=== PATIENT | male | born 1995 | race Two or more races ===

== ENCOUNTER 2019-11-12 19:01 | Emergency (ER) | payer SELFPAY ==
--- NOTE | 2019-11-12 19:04 | ED Physician Documentation ---
History of Present Illness - Stated complaint Stated Complaint: LT WRIST INJURY - Chief complaint Chief Complaint: Trauma Ext - History obtained from History obtained from: Patient (The patient is a 23-year-old male who presents with a chief complaint of left wrist pain the patient reports he is left-hand dominant. Patient reports that he was moving heavy furniture yesterday and today and now his wrist is sore he denies any trauma he denies any weakness or sensory loss or any other complaints.He denies any history of previous injuries to his left upper extremity.) Review of Systems Constitutional: reports: Reviewed and negative Eyes: reports: Reviewed and negative Ears: reports: Reviewed and negative Nose: reports: Reviewed and negative Throat: reports: Reviewed and negative Cardiac: reports: Reviewed and negative Respiratory: reports: Reviewed and negative GI: reports: Reviewed and negative : reports: Reviewed and negative Skin: reports: Reviewed and negative Musculoskeletal: reports: Joint pain (Left wrist pain) Neurologic: reports: Reviewed and negative Psychiatric: reports: Reviewed and negative Endocrine: reports: Reviewed and negative Immunocompromised: reports: Reviewed and negative PD PAST MEDICAL HISTORY - Allergies Allergies/Adverse Reactions: Allergies Allergy/AdvReac Type Severity Reaction Status Date / Time No Known Drug Allergies Allergy Verified 11/12/19 19:07 PD ED PE NORMAL - Vitals Vital signs reviewed: Yes - General General: Alert and oriented X 3, No acute distress - HEENT HEENT: PERRL - Neck Neck: Supple, no meningeal sign - Cardiac Cardiac: RRR, No murmur - Respiratory Respiratory: Clear bilaterally - Abdomen Abdomen: Normal bowel sounds, Soft, Non tender, Non distended - Derm Derm: Warm and dry - Extremities Extremities: No deformity, No tenderness to palpate, Normal ROM s pain, No edema, Other (Patient's complaining to pain to the left wrist there is no pain there is no swelling there is no deformity there is no instability his strength is 5 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 he has palpable radial pulses that are 2+ and symmetric his radian, median, ulnar motor and sensory exam are intact there is no pain over the proximal radial head there is no swelling his compartments are soft he is neurovascular intact.) - Neuro Neuro: Alert and oriented X 3 - Psych Psych: Normal mood, Normal affect Results - Vitals Vitals: Vital Signs - 24 hr 11/12/19 19:04 Temperature 36.4 C L Heart Rate 79 Respiratory 14 Rate Blood Pressure 158/78 H O2 Saturation 99 Oxygen O2 Source Room air Departure - Departure Disposition: 01 Home, Self Care Clinical Impression: Wrist pain, left Condition: Good Instructions: ED Sprain Wrist Follow-Up: YOUR,DOCTOR [Other] Comments: USE AN OVER THE COUNTER WRIST SPLINT NEEDED AND TAKE IBUPROFEN NEEDED WELL ICE SEVERAL TIMES DAILY.
[2019-11-12] MEDS ORDERED: IBUPROFEN 800 MG TABLET PO STA (19:12)
--- NOTE | 2019-11-12 20:00 | XRAY Report ---
Reason: left wrist pain Procedure Date: 11/12/2019 Accession Number: [id number] / [id number] Procedure: XR - Wrist 3 View LT CPT Code: Final Report FULL RESULT: EXAM: LEFT WRIST RADIOGRAPHY EXAM DATE: 11/12/2019 07:35 PM. CLINICAL HISTORY: Left wrist pain, fall today. COMPARISON: None. TECHNIQUE: 3 views. FINDINGS: Bones: No acute fracture. Joints: Normal. No dislocation. Soft Tissues: No focal soft tissue swelling. IMPRESSION: No acute osseus abnormality. RADIA
[2019-11-12 20:25] VITALS: BP 130/70
== END 2019-11-12 20:25 | disposition home or self-care (01) ==
LOC: ED 19:01
DX: M25.532 Pain in left wrist (principal)
CPT/HCPCS: 73110; 99283; 99284; A9270

== ENCOUNTER 2020-01-20 16:18 | Outpatient (CLI) | payer SELFPAY | END 2020-01-20 16:19 | disposition home or self-care (01) | LOC: COV 16:18 | PROVIDERS: ATTEND Family Medicine | DX: R50.9 Fever, unspecified (principal); Z20.828 Contact with and (suspected) exposure to other viral communicable diseases | CPT/HCPCS: 81599 ==

== ENCOUNTER 2020-04-09 20:58 | Emergency (ER) | payer OTHER ==
[2020-04-09] MEDS ORDERED: TETANUS/DIPHTHERIA/PERTUSSIS 0.5 ML SYRINGE IM ONE (21:32)
[2020-04-09] MEDS ORDERED: NEOMYCIN/BACITRA/POLYMYX OINT PACKET TOP STA (21:33)
--- NOTE | 2020-04-09 21:36 | ED Physician Documentation ---
PD HPI UPPER EXT INJURY - Stated complaint Stated Complaint: RT FINGERS INJ - Chief complaint Chief Complaint: Laceration - History obtained from History obtained from: Patient - History of Present Illness Location: Right, Finger (ring middle and little) Type of injury: Other (strangulation) Where injury occurred: [place] Timing - onset: How many days ago (2) Timing - duration: Days (2) Timing - details: Abrupt onset, Still present Improved by: Rest, Dressing Worsened by: Moving, Palpating Associated symptoms: No: Weakness, Numbness, Tingling, Swelling Contributing factors: No: Anticoagulated Similar symptoms before: Diagnosis (skin avulsion) Recently seen: Not recently seen - Additonal information Additional information: Previously well 24-year-old male was out walking his dog when the dog ran after something pulled on the leash and the leash strangulated 3 of his fingers. He is torn the skin on 2 of them and burned the third this happened 2 days ago. He has had a dressing over it and he has come in now with concerns about his wounds. Review of Systems Constitutional: denies: Fever Eyes: denies: Decreased vision Ears: denies: Ear pain Nose: denies: Congestion Throat: denies: Sore throat Respiratory: denies: Dyspnea, Cough GI: denies: Vomiting : denies: Dysuria PD PAST MEDICAL HISTORY - Allergies Allergies/Adverse Reactions: Allergies Allergy/AdvReac Type Severity Reaction Status Date / Time No Known Drug Allergies Allergy Verified 04/09/20 21:01 PD ED PE NORMAL - Vitals Vital signs reviewed: Yes (Hypertensive mild) - General General: Alert and oriented X 3, No acute distress, Well developed/nourished - HEENT HEENT: Atraumatic, PERRL, EOMI - Respiratory Respiratory: No respiratory distress - Derm Derm: Normal color, Warm and dry, No rash - Extremities Extremities: No deformity, No edema, Other (On the dorsal ulnar surface of the ring finger there is distraction of the epidermis with exposure of the dermis but does not penetrate the dermis. There is ruggae of the skin consistent with a wet dressing. The middle finger is similarly involved over the volar ulnar surface. ) - Neuro Neuro: Alert and oriented X 3, human resources admin 2-12 intact, No motor deficit, No sensory deficit, Normal speech Eye Opening: Spontaneous Motor: Obeys Commands Verbal: Oriented GCS Score: 15 - Psych Psych: Normal mood, Normal affect Results - Vitals Vitals: Vital Signs - 24 hr 04/09/20 21:01 Temperature 36.5 C Heart Rate 82 Respiratory 14 Rate Blood Pressure 136/77 H O2 Saturation 100 Oxygen O2 Source Room air PD MEDICAL DECISION MAKING - ED course Complexity details: reviewed results, re-evaluated patient, considered differential, d/w patient ED course: 24 y/o male with a strangulation of 3 fingers with superficial epidermal avulsion without evidence of infection is treated conservatively with wound dressing and he is given instruction on keeping the wound dry under the bandages. He is given a tetanus booster. Departure - Departure Disposition: 01 Home, Self Care Clinical Impression: Avulsion of skin of finger without complication Qualifiers: Encounter type: initial encounter Qualified Code(s): S61.209A - Unspecified open wound of unspecified finger without damage to nail, initial encounter Condition: Stable Instructions: ED Wound Care Follow-Up: [facility] [Provider Group]
[2020-04-09 21:54] VITALS: BP 126/75
== END 2020-04-09 21:54 | disposition home or self-care (01) ==
LOC: ED 20:58
DX: S61.204A Unspecified open wound of right ring finger without damage to nail, initial encounter (principal); S60.444A External constriction of right ring finger, initial encounter; S61.202A Unspecified open wound of right middle finger without damage to nail, initial encounter; S60.442A External constriction of right middle finger, initial encounter; S61.206A Unspecified open wound of right little finger without damage to nail, initial encounter; S60.446A External constriction of right little finger, initial encounter; W49.09XA Other specified item causing external constriction, initial encounter; Y93.K1 Activity, walking an animal; Y92.830 Public park as the place of occurrence of the external cause; Z23 Encounter for immunization
CPT/HCPCS: 99282; 99283

== ENCOUNTER 2021-03-09 18:36 | Emergency (ER) | payer MEDICAID, OTHER ==
[2021-03-09 19:02] VITALS: BP 133/73
--- NOTE | 2021-03-09 20:04 | XRAY Report ---
PROCEDURE: Ankle 3 View RT INDICATIONS: twisted playing basketball TECHNIQUE: 3 views of the ankle were acquired. COMPARISON: None FINDINGS: Bones: No fractures or dislocations. Ankle mortise is normally aligned. No suspicious bony lesions . Soft tissues: No tibiotalar joint effusion. Achilles tendon appears normal. IMPRESSION: No evidence acute bony abnormality of the right ankle. Reviewed by: Luis Pearce MD on 03/09/2021 8:02 PM PDT Approved by: Luis Pearce MD on 03/09/2021 8:02 PM PDT Station ID: [id number]
--- NOTE | 2021-03-09 20:07 | ED Physician Documentation ---
PD HPI LOWER EXT INJURY - Stated complaint Stated Complaint: RT ANKLE INJ - Chief complaint Chief Complaint: Trauma Ext - History obtained from History obtained from: Patient - History of Present Illness PD HPI LOW EXT INJURY LOCATION: Right, Ankle Type of injury: Fall, Twist Timing - onset: How many hours ago (1) Timing - duration: Hours (1) Pain level max: 7 Pain level now: 4 Improved by: Rest, Ice Worsened by: Moving, Palpating Associated symptoms: No: Weakness, Numbness, Swelling Contributing factors: No: Anticoagulated, Prior ortho surgery - Additional information Additional information: 25-year-old male was playing basketball today when he came down on another player's foot injuring the right ankle. He states that it twisted. Review of Systems Constitutional: denies: Fever Neurologic: denies: Head injury PD PAST MEDICAL HISTORY - Past Medical History Past Medical History: Yes Cardiovascular: None Respiratory: Asthma Neuro: None Endocrine/Autoimmune: None GI: None : None HEENT: None Psych: Depression, Bipolar disorder, ADD/ADHD Musculoskeletal: None Derm: None Other Past Medical History: Low Testoterone - Past Surgical History Past Surgical History: Yes Ortho: Other - Present Medications Home Medications: Ambulatory Orders Medication Instructions Recorded Confirmed Methylphenidate HCl [Ritalin] 15 mg PO BID 03/09/21 03/09/21 Testosterone Cypionate 0.5 ml SQ 03/09/21 [Depo-Testosterone] - Allergies Allergies/Adverse Reactions: Allergies Allergy/AdvReac Type Severity Reaction Status Date / Time No Known Drug Allergies Allergy Verified 03/09/21 19:02 - Social History Does the pt smoke?: No Smoking Status: Never smoker Does the pt drink ETOH?: No Does the pt have substance abuse?: No - Immunizations Immunizations are current?: Yes - POLST Patient has POLST: No PD ED PE NORMAL - Vitals Vital signs reviewed: Yes - General General: Alert and oriented X 3, No acute distress - HEENT HEENT: Moist mucous membranes - Neck Neck: Supple, no meningeal sign - Derm Derm: Warm and dry - Extremities Extremities: Other (Right ankle - Mild tenderness to palpation over the lateral malleolus of the right ankle. No tenderness over the foot, especially the base of the fifth metatarsal. No swelling. Neurovascular intact. Otherwise normal examination of the right foot, ankle, lower leg and knee.) - Neuro Neuro: Alert and oriented X 3 Results - Vitals Vitals: Vital Signs - 24 hr 03/09/21 18:59 Temperature 36.8 C Heart Rate 84 Respiratory 16 Rate Blood Pressure 133/73 H O2 Saturation 98 Oxygen O2 Source Room air - Rads (name of study) right Ankle x-ray Radiology: Prelim report reviewed, EMP read contemporaneously, See rad report PD MEDICAL DECISION MAKING - ED course Complexity details: reviewed results, re-evaluated patient, considered differential, d/w patient, d/w family ED course: Patient with a right ankle sprain. Placed in a gel splint for comfort. Given crutches. Declines pain medications here or for home. Patient counseled regarding signs and symptoms for which I believe and urgent re-evaluation would be necessary. Patient with good understanding of and agreement to plan and is comfortable going home at this time This document was made in part using voice recognition software. While efforts are made to proofread this document, sound alike and grammatical errors may occur. Departure - Departure Disposition: 01 Home, Self Care Clinical Impression: Right ankle sprain Qualifiers: Encounter type: initial encounter Involved ligament of ankle: unspecified ligament Qualified Code(s): S93.401A - Sprain of unspecified ligament of right ankle, initial encounter Condition: Good Instructions: ED Sprain Ankle Follow-Up: your,doctor in 1 week [Other] Comments: Your x-ray does not show any acute abnormalities today. You may bear weight as tolerated. Use the crutches to help stay off of the ankle. You can use Motrin or Tylenol for pain. Return if you worsen Discharge Date/Time: 03/09/21 20:21
== END 2021-03-09 20:21 | disposition home or self-care (01) ==
LOC: ED 18:36
DX: S93.401A Sprain of unspecified ligament of right ankle, initial encounter (principal); X50.1XXA Overexertion from prolonged static or awkward postures, initial encounter; Y93.67 Activity, basketball; Y92.310 Basketball court as the place of occurrence of the external cause
CPT/HCPCS: 99282; 99283